=== PATIENT | male | born 1970 | race Caucasian/White ===

== ENCOUNTER 2021-03-04 00:30 | Inpatient (IN) ==
[2021-03-04] MEDS ORDERED: Melatonin 3 MG TABLET PO PRN (09:52)
[2021-03-04] MEDS ORDERED: Acetaminophen 325 MG TABLET PO PRN (09:52)
[2021-03-04] MEDS ORDERED: Ondansetron 4 MG/2 ML VIAL IVP PRN (09:52)
[2021-03-04] MEDS ORDERED: MOM Conc 10 ML UD.LIQ PO PRN (09:52)
[2021-03-04] MEDS ORDERED: Mag Hydrox/Al Hydrox/Simeth 30 ML UDC PO PRN (09:52)
[2021-03-04] MEDS ORDERED: Naloxone 0.4 MG/ML INJ IVP PRN (09:52)
[2021-03-04] MEDS ORDERED: Morphine Sulfate 2 MG/ML SYRINGE IVP PRN (09:54)
[2021-03-04] MEDS ORDERED: Isovue-370 500 ML BOTTLE IVP ONE (11:17)
[2021-03-04] MEDS: Ringers Solution, Lactated 1,000 ML IVC SCH (14:45)
[2021-03-04] MEDS: *HR* Heparin 5,000 UNIT/ML VIAL SQ SCH ×2 (15:20→20:52)
[2021-03-05 04:38] LABS: Hematocrit 37.1 % (37.5-50.1); Hemoglobin 11.8 g/dL (12.9-16.9); Mean Corpuscular HGB Conc 31.8 g/dL (31.6-35.5); Mean Corpuscular Hemoglobin 29.1 pg (28.0-33.3); Mean Corpuscular Volume 91.4 fL (83.0-100.0); Mean Platelet Volume 10.9 fL (9.4-12.4); Platelet Count 312 K/mcL (140-400); Red Blood Count 4.06 M/mcL (4.19-5.50); Red Cell Distribution Width 12.9 % (11.5-14.5); White Blood Count 8.9 K/mcL (4.3-11.1)
[2021-03-05 04:53] LABS: INR 1.7; Prothrombin Time 18.8 Seconds (9.4-12.1)
[2021-03-05 04:56] LABS: Activated Partial Thrombo Time 31.2 Seconds (26.0-36.0)
[2021-03-05 04:59] LABS: BUN/Creatinine Ratio 16 (6-26); Blood Urea Nitrogen 15 mg/dL (6-20); Carbon Dioxide 26 mEq/L (23-29); Chloride 107 mEq/L (98-107); Glucose 103 mg/dL (70-105); Osmolality,Calculated 291 (280-300); Potassium 4.1 mEq/L (3.5-5.1); Sodium 140 mEq/L (136-145); eGFR For African Americans > 60 (> 60); eGFR For Non-African Americans > 60 (> 60)
[2021-03-05] MEDS: *HR* Heparin 5,000 UNIT/ML VIAL SQ SCH ×2 (05:18→15:44)
[2021-03-05] MEDS: Ringers Solution, Lactated 1,000 ML IVC SCH (05:21)
[2021-03-05] MEDS ORDERED: *HR* Phytonadione 10 MG/ML AMPUL SQ ONE (16:01)
[2021-03-06 02:32] LABS: Basophils # 0.1 K/mcL (0.0-0.2); Basophils % 0.7 %; Eosinophils # 0.1 K/mcL (0.0-0.6); Eosinophils % 1.3 %; Hematocrit 39.4 % (37.5-50.1); Hemoglobin 12.5 g/dL (12.9-16.9); Immature Granulocytes % 0.4 % (0-4); Lymphocytes % 23.8 %; Mean Corpuscular HGB Conc 31.7 g/dL (31.6-35.5); Mean Corpuscular Hemoglobin 28.9 pg (28.0-33.3); Mean Platelet Volume 10.9 fL (9.4-12.4); Monocytes # 0.5 K/mcL (0.0-1.3); Monocytes % 6.4 %; Neutrophils # 5.7 K/mcL (1.6-8.9); Platelet Count 321 K/mcL (140-400); Red Blood Count 4.33 M/mcL (4.19-5.50); Red Cell Distribution Width 12.4 % (11.5-14.5); Segmented Neutrophils % 67.4 %; White Blood Count 8.4 K/mcL (4.3-11.1)
[2021-03-06 02:41] LABS: INR 1.6; Prothrombin Time 17.5 Seconds (9.4-12.1)
[2021-03-06 02:48] LABS: BUN/Creatinine Ratio 15 (6-26); Blood Urea Nitrogen 14 mg/dL (6-20); Calcium 9.1 mg/dL (8.6-10.3); Carbon Dioxide 27 mEq/L (23-29); Chloride 105 mEq/L (98-107); Glucose 105 mg/dL (70-105); Magnesium 1.9 mg/dL (1.6-2.6); Osmolality,Calculated 291 (280-300); Potassium 3.8 mEq/L (3.5-5.1); Sodium 140 mEq/L (136-145); eGFR For African Americans > 60 (> 60); eGFR For Non-African Americans > 60 (> 60)
[2021-03-06] MEDS ORDERED: Lidocaine HCL 4 ML Topical Solution (Laryng-O-Jet Kit Sterile Pak) TP ONE (12:17)
[2021-03-06] MEDS ORDERED: *HR* Midazolam HCl 2 MG/2 ML VIAL ONE (12:21)
[2021-03-06] MEDS ORDERED: Ondansetron 4 MG/2 ML VIAL ONE (12:21)
[2021-03-06] MEDS ORDERED: *HR* FentaNYL (PF) 100 MCG/2 ML VIAL ONE (12:21)
[2021-03-06] MEDS ORDERED: *HR* Succinylcholine 200 MG/10 ML VIAL IVP ONE (12:21)
[2021-03-06] MEDS ORDERED: *HR* Propofol 200 MG/20 ML VIAL IVP ONE (12:21)
[2021-03-06] MEDS ORDERED: *HR* Rocuronium Bromide 50 MG/5 ML VIAL ONE ×2 (12:21→13:43)
[2021-03-06] MEDS ORDERED: Lidocaine -MPF 2% 2 ML VIAL ONE (12:21)
[2021-03-06] MEDS ORDERED: Bupivacaine-MPF 0.25% 10 ML VIAL ONE (12:24)
[2021-03-06] MEDS ORDERED: Acetaminophen IV 1,000 MG/100 ML BAG IVPB ONE (12:32)
[2021-03-06] MEDS ORDERED: CeFAZolin Syr 2,000MG/20 ML 2,000 MG/20 ML SYRINGE IVPB ONE (12:51)
[2021-03-06] MEDS ORDERED: *HR* HYDROMORPHONE 2 MG/ML VIAL ONE (13:39)
[2021-03-06] MEDS ORDERED: Sugammadex Sodium 200 MG/2 ML VIAL IV ONE (14:48)
[2021-03-06] MEDS ORDERED: *HR* FentaNYL (PF) 100 MCG/2 ML VIAL IVP PRN (15:43)
[2021-03-06] MEDS ORDERED: Ketorolac 15 MG/ML VIAL IVP PRN (15:43)
[2021-03-06] MEDS ORDERED: *HR* OxyCODONE Immed Rel 5 MG TABLET PO PRN (15:43)
[2021-03-06] MEDS ORDERED: Ondansetron 4 MG/2 ML VIAL IVP PRN ×2 (15:43→18:31)
[2021-03-06] MEDS ORDERED: *HR* HYDROmorphone PF 0.5 MG/0.5 ML SYRINGE IVP PRN (15:43)
[2021-03-06] MEDS ORDERED: *HR* HYDROmorphone PF 0.5 MG/0.5 ML SYRINGE IVP ONE (15:45)
[2021-03-06] MEDS ORDERED: Orphenadrine 60 MG/2 ML VIAL IVP ONE (15:47)
[2021-03-06] MEDS ORDERED: *HR* HYDROmorphone (PF) 1 MG/ML SYRINGE ONE (15:52)
[2021-03-06] MEDS ORDERED: *HR* Labetalol 20 MG/4 ML SYRINGE IVP PRN (16:22)
[2021-03-06] MEDS ORDERED: *HR* Labetalol 20 MG/4 ML SYRINGE IVP ONE (16:24)
[2021-03-06] MEDS: 0.9 % Sodium Chloride 1,000 ML IVC SCH (17:40)
[2021-03-06] MEDS ORDERED: *HR* Belladonna Alkaloids/Opium 30 MG RECTAL SUPPOSITORY RC PRN (18:31)
[2021-03-06] MEDS ORDERED: *HR* HYDROcodone/Acet 5/325 mg TABLET PO PRN (18:31)
[2021-03-06] MEDS ORDERED: Naloxone 0.4 MG/ML INJ IVP PRN (18:31)
[2021-03-06] MEDS ORDERED: Acetaminophen 325 MG TABLET PO PRN (18:31)
[2021-03-07] MEDS: *HR* OxyCODONE Immed Rel 5 MG TABLET PO PRN ×2 (01:29→11:02)
[2021-03-07] MEDS: 0.9 % Sodium Chloride 1,000 ML IVC SCH ×2 (01:32→10:35)
[2021-03-07 04:51] LABS: Basophils % 0.1 %; Hematocrit 35.1 % (37.5-50.1); Hemoglobin 11.5 g/dL (12.9-16.9); Immature Granulocytes % 0.3 % (0-4); Lymphocytes # 1.3 K/mcL (0.6-4.6); Lymphocytes % 10.3 %; Mean Corpuscular HGB Conc 32.8 g/dL (31.6-35.5); Mean Corpuscular Hemoglobin 30.1 pg (28.0-33.3); Mean Corpuscular Volume 91.9 fL (83.0-100.0); Mean Platelet Volume 11.1 fL (9.4-12.4); Monocytes # 1.1 K/mcL (0.0-1.3); Monocytes % 9.1 %; Neutrophils # 9.9 K/mcL (1.6-8.9); Platelet Count 334 K/mcL (140-400); Red Blood Count 3.82 M/mcL (4.19-5.50); Red Cell Distribution Width 12.7 % (11.5-14.5); Segmented Neutrophils % 80.2 %; White Blood Count 12.3 K/mcL (4.3-11.1)
[2021-03-07 05:15] LABS: BUN/Creatinine Ratio 14 (6-26); Blood Urea Nitrogen 19 mg/dL (6-20); Calcium 8.7 mg/dL (8.6-10.3); Carbon Dioxide 23 mEq/L (23-29); Chloride 105 mEq/L (98-107); Glucose 130 mg/dL (70-105); Osmolality,Calculated 292 (280-300); Potassium 4.2 mEq/L (3.5-5.1); Sodium 139 mEq/L (136-145); eGFR For African Americans > 60 (> 60); eGFR For Non-African Americans 56 (> 60)
[2021-03-07 10:54] VITALS: BP 161/88; PULSE 69; TEMP 98.7; O2SAT 97
== END 2021-03-07 12:37 | disposition home or self-care (01) | DRG 657 ==
LOC: 2ANU → SUATTDRO 09:42
PROVIDERS: ADMIT Internal Medicine; ATTEND Pharmacist